=== PATIENT | female | born 2000 | race Caucasian/White ===

== ENCOUNTER 2025-06-19 00:18 | Emergency (ER) | payer OTHER ==
[~2025-06-19] VITALS: Ht 157.5 cm; Wt 57.0 kg
[2025-06-19] MEDS ORDERED: LACTATED RINGER'S 1,000 ML IV ONE (00:30)
[2025-06-19] MEDS ORDERED: DIPHENOXYLATE/ATROPINE 1 EA TAB PO ONE (00:30)
[2025-06-19 00:59] LABS: BASOPHILS 0.4 % (0.1-1.2); EOSINOPHILS 0.4 % (0.7-5.8); LYMPHOCYTES 14.6 % (19.3-51.7); MCH 28.2 PG (25.6-32.2); MCHC 33.6 g/dL (32.2-35.5); MCV 83.9 fL (79.4-94.8); MONOCYTES 6.2 % (4.7-12.5); NEUTROPHILS 78.2 % (34.0-71.1); RBC 4.72 M/uL (3.93-5.22)
[2025-06-19] MEDS ORDERED: HYDROCODONE BIT/ACETAMINOPHEN 5/325 MG 1 TAB HOME.PACK PO ONE ×2 (02:03→03:45)
[2025-06-19] MEDS ORDERED: ONDANSETRON 4 MG HOME.PACK SL ONE ×2 (02:04→03:45)
[2025-06-19 03:31] LABS: BLOOD/HGB, URINE NEGATIVE (Negative); KETONE, URINE NEGATIVE (Negative); LEUK ESTERASE, URINE NEGATIVE (negative); NITRITE, URINE NEGATIVE (negative)
[2025-06-19 03:35] LABS: ALT (SGPT) 24.0 U/L (14-59); AST (SGOT) 12.0 U/L (15-37); GLOMERULAR FILTRATION RATE,EST 92.0 mL/min (>60); PROTEIN, TOTAL 8.1 g/dL (6.4-8.2); UREA NITROGEN 14.0 mg/dL (7-18)
[2025-06-19 03:43] VITALS: BP 139/95
== END 2025-06-19 02:20 | disposition home or self-care (01) ==
LOC: ED 00:18
PROVIDERS: Family Medicine
DX: K52.9 Noninfective gastroenteritis and colitis, unspecified (principal)
CPT/HCPCS: 36415; 74018; 80053; 81003; 83690; 84703; 85025; 87502; 96374; 99284-25; A9270; J2405; J7121; U0002